=== PATIENT | male | born 1955 | race Caucasian/White ===

== ENCOUNTER 2020-04-11 07:45 | Emergency (ER) | payer OTHER ==
[~2020-04-11] VITALS: Ht 172.7 cm; Wt 118.6 kg
[2020-04-11 07:48] VITALS: Ht 172.7 cm; Wt 118.6 kg
[2020-04-11] MEDS ORDERED: LYRICA150 MG PO (07:56)
[2020-04-11] MEDS ORDERED: TOPROL XL100 MG PO (07:56)
[2020-04-11] MEDS ORDERED: GLUCOPHAGE1000 MG PO (07:56)
[2020-04-11] MEDS ORDERED: LISINOPRIL40 MG PO (07:57)
[2020-04-11] MEDS ORDERED: HYDROCHLOROTHIA25 MG PO (07:57)
[2020-04-11] MEDS ORDERED: GEMFIBROZIL600 MG PO (07:57)
[2020-04-11] MEDS ORDERED: PRAVACHOL20 MG PO (07:59)
[2020-04-11] MEDS ORDERED: FLOMAX0.4 MG PO (08:00)
[2020-04-11] MEDS ORDERED: LOVAZA PO (08:00)
[2020-04-11] MEDS ORDERED: ZYLOPRIM300 MG PO (08:00)
[2020-04-11 08:20] LABS: BASOPHILS 0.5 % (0-2); EOSINOPHILS 2.4 % (0-7); HEMATOCRIT 49.4 % (42.0-54.0); HEMOGLOBIN 16.9 g/dL (13.5-17.5); IMMATURE GRANULOCYTES 0.3 % (0-5); LYMPHOCYTES 19.7 % (15-50); MCH 31.7 pg (26.0-34.0); MCHC 34.2 g/dL (31.0-37.0); MCV 92.7 fL (80.0-100.0); MEAN PLATELET VOLUME 10.7 fL (7.4-10.4); MONOCYTES 8.6 % (2-11); NEUTROPHILS 68.5 % (40-80); PLATELET COUNT 218 10x3/uL (130-400); RBC 5.33 10x6/uL (4.20-6.10); RDW 14.5 % (11.5-14.5); WBC 8.8 10x3/uL (4.8-10.8)
[2020-04-11 08:25] LABS: CALC OSMOLALITY 281 mosm/kg (275-300); CALCIUM 8.6 mg/dL (8.5-10.1); CARBON DIOXIDE 29.9 mmol/L (21.0-32.0); CHLORIDE - SERUM 97 mmol/L (98-107); POTASSIUM - SERUM 3.9 mmol/L (3.5-5.1); SODIUM 135 mmol/L (136-145); UREA NITROGEN 19 mg/dL (7-18); eGFR NON AFRICAN AMERICAN 79 mL/min (90-120)
[2020-04-11 08:32] LABS: GLUCOSE 287 mg/dL (74-106)
[2020-04-11 08:41] LABS: ALBUMIN 4.2 g/dL (3.4-5.0); ALKALINE PHOSPHATASE 85 U/L (30-120); BILIRUBIN - TOTAL 0.75 mg/dL (0.2-1.3); CKMB 1.3 U/L (0.0-3.6); CREATINE KINASE 88 UL (21-232); PRO BNP 83 pg/mL (0-125)
[2020-04-11 08:42] LABS: PROTEIN - SERUM 8.1 g/dL (6.4-8.2); TROPONIN-I < 0.017 ng/mL (0.000-0.060)
[2020-04-11 08:50] LABS: ALT (SGPT) 17 U/L (10-68); APTT 35.2 SECONDS (22.8-39.4); INR 0.98 (0.85-1.17); PROTIME 12.9 SECONDS (11.6-15.0)
[2020-04-11 08:51] LABS: D-DIMER-QUANTITATIVE 0.56 ug/mLFEU (0.20-0.54)
[2020-04-11 12:00] VITALS: BP 156/65
[2020-04-11 12:18] LABS: CREATINE KINASE 124 UL (21-232); TROPONIN-I 0.024 ng/mL (0.000-0.060)
== END 2020-04-11 12:05 | disposition left against medical advice (07) ==
LOC: D.ER 07:45
PROVIDERS: Family Medicine
DX: J44.1 Chronic obstructive pulmonary disease with (acute) exacerbation (principal); I24.9 Acute ischemic heart disease, unspecified; Z53.29 Procedure and treatment not carried out because of patient's decision for other reasons

== ENCOUNTER 2021-03-07 17:41 | Emergency (ER) | payer OTHER ==
[~2021-03-07] VITALS: Ht 172.7 cm; Wt 118.2 kg
[~2021-03-07 17:41] MED LIST: FLOMAX0.4 MG PO; GEMFIBROZIL600 MG PO; GLUCOPHAGE1000 MG PO; HYDROCHLOROTHIA25 MG PO; LISINOPRIL40 MG PO; LOVAZA PO; LYRICA150 MG PO; PRAVACHOL20 MG PO; TOPROL XL100 MG PO; ZYLOPRIM300 MG PO
[2021-03-07 18:06] VITALS: Ht 172.7 cm; Wt 118.2 kg
[2021-03-07] MEDS ORDERED: LYRICA150 MG PO (18:58)
[2021-03-07] MEDS ORDERED: VISTARIL25 MG PO (18:58)
[2021-03-07 19:24] VITALS: BP 136/87
== END 2021-03-07 19:24 | disposition home or self-care (01) ==
LOC: D.ER 17:41
DX: M79.605 Pain in left leg (principal); M79.604 Pain in right leg; F51.02 Adjustment insomnia; E11.40 Type 2 diabetes mellitus with diabetic neuropathy, unspecified; Z79.84 Long term (current) use of oral hypoglycemic drugs